=== PATIENT | female | born 1945 | race Caucasian/White ===

== ENCOUNTER 2025-02-05 11:18 | Emergency (ER) | payer OTHER, SELFPAY ==
[2025-02-05] VITALS (7 sets, daily range): BP systolic 126–148; BP diastolic 55–88; PULSE 65–88; RESP 16–20; TEMP 36.4–36.6; O2SAT 97–99
--- NOTE | ~2025-02-05 | XR_ITS ---
EXAMINATION: XR chest 2V 02/05/2025 13:30 INDICATION: Altered mental status with cough PROCEDURE: 2 view chest COMPARISON: No prior studies for comparison. FINDINGS: The lungs are clear. The cardiomediastinal silhouette is within normal limits. There are no pleural effusions. There is no pneumothorax suspected. IMPRESSION: 1: NO ACUTE CARDIOPULMONARY DISEASE. Reviewed, dictated and finalized at location A.
--- NOTE | ~2025-02-05 | CT_ITS ---
EXAMINATION: CT brain wo con DATE: 02/05/2025 16:14 INDICATION: Altered mental status TECHNIQUE: Computed tomography (CT) of the head was performed without intravenous contrast. Sagittal and coronal reconstructions were performed. The mA was adjusted according to patient size. Iterative reconstruction technique was employed. The dose-length product was 605.33 mGy-cm. COMPARISON: None FINDINGS: Small regions of encephalomalacia in the right occipital lobe consistent with old infarct. Additional small old infarcts in the right corpus callosum and in the at the bilateral basal ganglia near the g enus of the bilateral internal capsules. No acute intracranial hemorrhage, acute infarction or abnorm al extra axial fluid collection. There is mild to moderate scattered white matter hypoattenuation con sistent with chronic small vessel ischemic disease. Symmetric prominence of the sulci consistent with moderate age-appropriate diffuse cerebral volume loss. Ventricles are normal and symmetric. No mass/ mass effect. Changes of left intraocular lens replacement. The orbits, paranasal sinuses and right ma stoid air cells are normal. Small left mastoid effusion. IMPRESSION: 1. 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 No acute intracranial process. 2. Age-related changes including moderate diffuse volume loss and mild to moderate scattered white ma tter hypoattenuation consistent with chronic small vessel ischemic disease. Reviewed, dictated and finalized at location A. IMPRESSION: 1. 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 No acute intracranial process. 2. Age-related changes including moderate diffuse volume loss and mild to moder ate scattered white matter hypoattenuation consistent with chronic small vessel ischemic disease.
--- OUTSIDE RECORDS SUMMARY | 2025-02-05 11:21 | XMS_ITS | Clinical Summary ---
Author Organization [facility] Address [address] [place] [address] Care Team Providers Care Team Manager Name Role Phone Unavailable Primary Care Provider Unavailabl e Source Comments [facility],non-owned Affiliates and Associated Physician Practices is amultiple site organization consisting of ambulatory clinics and hospital sitesin [place], [place], [place] and [place]. This disclosure is being madepursuant to the Care Everywhere program and may not contain all information available regarding this patient. Last updated 18.[facility] [employer] Allergies No known active allergies Social History Tobacco Use Types Packs/Day Years Used Date Smoking Tobacco: Never Assessed Comments Unknown Sex and Gender Information Value Date Recorded Sex Assigned at Not on file Legal Sex Female 9:18 PM CDT Gender Identity Not on file Sexual Orientation Not on file Last Filed Vital Signs Vital Sign Reading Time Taken Comments Blood Pressure 165/97 03/20/2024 12:23 AM CDT Pulse 79 03/20/2024 12:23 AM CDT Temperature 36.6 C (97.9 F) 03/20/2024 12:23 AM CDT Respiratory Rate 16 03/20/2024 12:23 AM CDT Oxygen Saturation 94% 03/20/2024 12:23 AM CDT Inhaled Oxygen Concentration - - Weight 81.6 kg (180 lb) 03/25/2024 11:19 AM CDT Height 152.4 cm (5') 03/25/2024 11:19 AM CDT Body Mass Index 35.15 03/25/2024 11:19 AM CDT Plan of Treatment Health Maintenance Due Date Last Done Comments BONE DENSITY TESTING 1945 DTAP/TDAP/TD VACCINES (1 - Tdap) 01/31/1963 PNEUMOCOCCAL VACCINE 50+ (1 of 1 - PCV) 01/31/1994 ZOSTER VACCINE (1 of 2) 01/31/1994 Respiratory Syncytial Virus (RSV) Vaccine Pt: or over 60 yrs (1 - 1-dose 75+ series) 01/31/2019 COVID-19 VACCINE (3 - season) 2024 11/16/2020, 10/26/2020 DEPRESSION SCREENING 07/02/2024 INFLUENZA VACCINE (#1) 2025 , 04/29/2019, 03/29/2018, Additional history exists HEPATITIS B VACCINE Aged Out No longe r eligible based on patient's age to complete this topic HIB VACCINE Aged Out No longer eligi ble based on patient's age to complete this topic HPV VACCINE Aged Out No longer eligi ble based on patient's age to complete this topic MENINGOCOCCAL (Group B) VACCINE SHARED DECISION-MAKING Aged Out No longer eligible based on patient's age to complete this topic MENINGOCOCCAL GROUPS A/C/Y/W VACCINE Aged Out No longer eligible based on patient's age to complete this topic Insurance * Guarantor: Stroke, Lola Account Type Relation to Patient Date of Phone Billing Address Personal/Family Self 1945 [address] [place] [address] [facility] * Guarantor: Stroke, Lola Account Type Relation to Patient Date of Phone Billing Address Personal/Family Self 1945
--- OUTSIDE RECORDS SUMMARY | 2025-02-05 11:21 | XMS_ITS | Clinical Summary ---
Author Organization [facility] Facility Address [address] [place] [address] Care Team Providers Care Manager Internet Ret[employer] Sales Name Role Phone Kendra Krishnamurthy MD Primary Care Provider [phone] Encounters Date Type Department Care Team Description 01/29/2025 Documentation Only [facility], [address] [address] Provider, MD Noelle from Last 3 Months Family History Medical History Relation Comments Cancer Father Cancer Mother Cancer Sibling Relation Status Comments Father Mother Sibling Social History Tobacco Use Types Packs/Day Years Used Date Smoking Tobacco: Never Alcohol Use Standard Drinks/Week Comments No 0 (1 standard drink = 0.6 oz pur e alcohol) Comments Unknown Sex and Gender Information Value Date Recorded Sex Assigned at Not on file Legal Sex Female 2:49 PM EDT Gender Identity Not on file Sexual Orientation Not on file Plan of Treatment Health Maintenance Due Date Last Done Comments Pneumococcal Vaccine: 50+ Years (3 of 3 - PCV) 03/26/2018 03/26/2017, 11/03/2015 Influenza Vaccine (#1) 2025 , 04/21/2023, 04/07/2022, Additional history exists Hepatitis B Vaccine Aged Out No longe r eligible based on patient's age to complete this topic Insurance * Guarantor: StrokePaigene Account Type Relation to Patient Date of Phone Billing Address Personal/Family Self [address] [place] [id number] [address] [place] [employer] ([id number]) Care Teams Manager [employer] Sales Relationship Specialty Start Date End Date Kendra Krishnamurthy MD [address] [place] [address], [address] [place] [address] PCP - General Internal Medicine 10/24/24
--- NOTE | 2025-02-05 12:49 | ED.AMS ---
HPI - Altered Mental Status General Chief Complaint: Altered Mental Status Stated Complaint: altered mental status Time Seen by Provider: 02/05/25 12:44 History of Present Illness HPI narrative: Patient is an 80-year-old female who presents ER with altered mental status. Recently hospitalized in [place] for UTI. She was discharged home. Daughter found her sleeping well eating today and reports she has been falling asleep more often. Recently diagnosed with dementia and started on donepezil. Patient has no complaints at this time. Related Data Home Medications ?Medication ?Instructions ?Recorded ?Confirmed ?Last Taken ?Type acetaminophen PO PRN 01/29/24 01/29/24 Unknown History levothyroxine 25 mcg tablet 25 mcg PO DAILY 01/29/24 01/29/24 Unknown History Allergies Allergy/AdvReac Type Severity Reaction Status Date / Time No Known Allergies Allergy Unverified 01/29/24 13:05 Review of Systems Review of Systems: ROS unobtainable: Yes unobtainable due to mental status PMFSH Past Medical History Medical History (Updated 02/05/25 @ 17:08 by Gallo Greenberg MD) Urinary frequency Hypothyroid Confusion Thyroid disorder Arthritis Anxiety Seasonal allergies Surgical History Surgical History (Updated 01/29/24 @ 13:07 by Dinesh Sheppard CMA) Hx of fracture of leg Family History Family History Mother Thyroid disorder Sibling Thyroid disorder Social History Social History Smoking status: Never smoker Alcohol intake: never Substance use: never Exam Narrative: GENERAL: Well-appearing, well-nourished, and in no acute distress. HEAD: Normocephalic, atraumatic. EYES: PERRL and EOMI. ENT: Mucous membranes moist. CHEST: Clear to auscultation. No respiratory distress. HEART: Regular rate and rhythm. Normal peripheral pulses. ABDOMEN: Soft, nontender, nondistended. EXTREMITIES: Normal range of motion. No edema. SKIN: Warm, dry, no rash. NEURO: Awake alert and orient x2. Ambulates with a steady gait. No upper lower extremity drift. No facial asymmetry. Normal coordination. PSYCH: Normal mood and affect. Course Course Emergency Course: Patient resting comfortably. Eating drinking without issue. Discussed imaging and lab results with daughter. Patient has been sleeping more home since last admission. No falls. Suspect vascular dementia given imaging results. Vital Signs Vital signs: Vital Signs Temperature 97.6 F 02/05/25 11:19 Pulse Rate 65 02/05/25 11:19 Respiratory Rate 18 02/05/25 11:19 Blood Pressure 129/55 L 02/05/25 11:19 Pulse Oximetry 99 02/05/25 11:19 Oxygen Delivery Room Air 02/05/25 11:19 Temperature 97.8 F 02/05/25 16:59 Pulse Rate 86 02/05/25 16:59 Respiratory Rate 16 02/05/25 16:59 Blood Pressure 148/82 H 02/05/25 16:59 Pulse Oximetry 97 02/05/25 16:59 Oxygen Delivery Room Air 02/05/25 11:19 MDM - Altered Mental Status Lab Data 02/05/25 13:20 02/05/25 13:20 Labs: Lab Results 02/05/25 02/05/25 Range/Units 13:12 13:20 WBC 7.7 (4.5-10.0) K/mm3 RBC 3.50 L (4.2-5.4) M/mm3 Hgb 10.5 L (12.0-15.0) g/dL Hct 32.4 L (37.0-47.0) % MCV 92.6 (80-100) fl MCH 30.0 (26-34) pg MCHC 32.4 (32-36) g/dl RDW 13.2 (11.5-14.5) % Plt Count 232 (150-375) k/mm3 MPV 9.6 (7.4-10.4) fl Immature Gran % (Auto) 1.0 H (0-0.5) % Neut % (Auto) 77.4 H (45.5-73.1) % Lymph % (Auto) 8.5 L (18.3-44.2) % [place] % (Auto) 10.5 H (2.6-8.5) % Eos % (Auto) 2.1 (0-4.4) % Baso % (Auto) 0.5 (0.2-1.2) % Lymph # (Auto) 0.65 L (0.9-3.2) K/mm3 [place] # (Auto) 0.8 H (0.1-0.6) K/mm3 Eos # (Auto) 0.2 (0-0.3) K/mm3 Baso # (Auto) 0.0 (0.0-0.1) K/mm3 Abs Immat Gran (auto) 0.08 H (0.00-0.031) K/mm3 Absolute Neuts (auto) 6.0 (1.3-6.7) K/mm3 Absolute Nucleated RBC 0.000 (0.0-0.012) K/mm3 Nucleated RBC % 0.0 (0.0-0.2) % Sodium 130 L (137-145) mmol/L Potassium 4.8 (3.4-5.0) mmol/L Chloride 95 L (98-107) mmol/L Carbon Dioxide 29 (22-30) mmol/L Anion Gap 6 (4-12) mmol/L BUN 10 (7-17) mg/dL Creatinine 0.91 (0.7-1.0) mg/dL Estim Creat Clear Calc 37 ml/min Estimated GFR 59 (59 - ) Glucose 112 H (65-110) mg/dL Calcium 9.9 (8.4-10.2) mg/dL Total Bilirubin 0.3 (0.2-1.3) mg/dL AST 41 H (14-36) U/L ALT 23 (6-35) U/L Alkaline Phosphatase 114 (38-126) U/L Total Protein 6.4 (6.3-8.2) g/dL Albumin 3.5 (3.5-5.1) g/dL Urine Color Yellow (Yellow) Urine Appearance Cloudy H (Clear) Urine pH 6.0 (5.0-9.0) Ur Specific [place] 1.009 (1.001-1.035) Urine Protein Negative (Negative) mg/dL Urine Glucose (UA) Negative (Negative) mg/dL Urine Ketones Negative (Negative) mg/dL Ur Blood (Man) Negative (Negative) Urine Nitrate Negative (Negative) Urine Bilirubin Negative (Negative) Urine Urobilinogen 0.2 (<2.0) mg/dL Leukocyte Esterase Rfl Negative (Negative) ISRAEL/UL Urine RBC 0-2 (0-2) /hpf Urine WBC 0-5 (0-3) /hpf Ur Squamous Epith Cells None seen (Few) /hpf Urine Bacteria None seen /hpf Urine Casts 0-2 Imaging Data Radiologist's impression: ITS Impressions Chest X-Ray 02/05/25 13:35 IMPRESSION: 1: NO ACUTE CARDIOPULMONARY DISEASE. Head CT 02/05/25 16:28 IMPRESSION: 1. 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 No acute intracranial process. 2. Age-related changes including moderate diffuse volume loss and mild to moderate scattered white matter hypoattenuation consistent with chronic small vessel ischemic disease. ECG Data EKG #1: ECG completion date: 02/05/25 ECG completion time: 12:54 EKG Interpretation: normal rate (72), sinus rhythm, no ST changes, normal QRS and normal QT Discharge Plan Discharge Clinical Impression: General weakness Patient Disposition: Home Condition: Stable Instructions: General Patient Instructions Additional Instructions: Please return to the emergency department if you develop severe and persistent chest pain, difficulty breathing, dizziness, leg swelling or if you are coughing up blood as these can be signs of a medical emergency. Please call your doctor for a follow up appointment to determine the need for further testing. Patient Language: Armenian Prescriptions: No Action levothyroxine 25 mcg tablet 25 mcg PO DAILY meloxicam 15 mg tablet 15 mg PO DAILY Qty: 90 3RF acetaminophen PO PRN donepezil [Aricept] 5 mg tablet 5 mg PO QHS Qty: 30 5RF Follow-up/Referrals: PHYSICIAN NOT ON STAFF,NONSTAFF [Primary Care Provider] - 1 Week
--- NOTE | 2025-02-05 12:55 | ECG_ITS ---
Test Date: 2025-02-05 12:54:34 Measurements Intervals [place] Rate: 72 P: 75 MS: 141 QRS: -25 QRSD: 79 T: 16 QT: 376 QTc: 414 Interpretive Statements SINUS RHYTHM BORDERLINE R WAVE PROGRESSION, ANTERIOR LEADS LEFT VENTRICULAR HYPERTROPHY AND ST-T CHANGE MINIMAL Q WAVES- HIGH LATERAL LEADS BASELINE ARTIFACT- I, II, AVR, AVL, V3 BORDERLINE ECG No previous ECG available for comparison Electronically Signed On 02-05-2025 13:47:00 CDT by Milton Jara D.O.
--- OUTSIDE RECORDS SUMMARY | 2025-02-05 13:21 | XMS_ITS | Clinical Summary ---
Author Organization [facility] Facility Address [address] [place] [address] Care Team Providers Care Outdoor Adventure Guides Name Role Phone Kendra Krishnamurthy MD Primary Care Provider [phone] Encounters Date Type Department Care Team Description 01/29/2025 Documentation Only [facility], [address] [address] Provider, MD Noelle from Last [...] of Phone Billing Address Personal/Family Self [address] [place] [id number] [place] [employer] ([id number]) Care Teams Outdoor Adventure Guides Relationship Specialty Start Date End Date Kendra Krishnamurthy MD [address] [place] [address], [address] [place] [address] PCP - General Internal Medicine 10/24/24
--- OUTSIDE RECORDS SUMMARY | 2025-02-05 13:21 | XMS_ITS | Clinical Summary ---
Author Organization [facility] Address [address] [place] [address] Care Team Providers Care Miscellaneous Machine Operator Name Role Phone Unavailable Primary Care Provider Unavailabl e Source Comments [facility],non-owned Affiliates and Associated Physician Practices is amultiple site organization consisting of ambulatory clinics and hospital sitesin [place], [place], [place] and [place]. This disclosure is being madepursuant to the Care Everywhere program and may not contain all information available regarding this patient. Last updated 18.[facility] Medical Allergies No known active allergies Social History [...] of Phone Billing Address Personal/Family Self 1945 [address] [place] [address] [facility] * Guarantor: Stroke, Lola Account Type Relation to Patient Date of Phone Billing Address Personal/Family Self 1945
[2025-02-05 13:22] LABS: Add Urine Microscopic? YES; Appearance Urine Cloudy (Clear); Glucose Urine UA Negative (Negative); Leukocyte Esterase Ur Negative LEU/UL (Negative); Nitrate Urine Negative (Negative); Non Pathogenic Casts 0-2; Specific Grav Ur 1.009 (1.001-1.035)
[2025-02-05 13:28] LABS: Hematocrit 32.4 % (37.0-47.0); Hemoglobin 10.5 g/dL (12.0-15.0); Immature Granulocyte Percent A 1.0 % (0-0.5); Lymphocytes Absolute Auto 0.65 K/mm3 (0.9-3.2); Mean Corpuscular HGB Conc 32.4 g/dl (32-36); Mean Corpuscular Hemoglobin 30.0 pg (26-34); Mean Corpuscular Volume 92.6 fl (80-100); Nucleated Red Blood Cells Absolute Auto 0.000 K/mm3 (0.0-0.012); Nucleated Red Blood Cells Perc 0.0 % (0.0-0.2); Platelet Count Result 232 k/mm3 (150-375); Red Blood Count 3.50 M/mm3 (4.2-5.4); White Blood Count 7.7 K/mm3 (4.5-10.0)
[2025-02-05 13:53] LABS: Alanine Aminotransferase 23 U/L (6-35); Albumin Level 3.5 g/dL (3.5-5.1); Alkaline Phosphatase 114 U/L (38-126); Anion Gap 6 mmol/L (4-12); Aspartate Amino Transferase 41 U/L (14-36); Bilirubin,Total 0.3 mg/dL (0.2-1.3); Blood Urea Nitrogen 10 mg/dL (7-17); Calcium 9.9 mg/dL (8.4-10.2); Carbon Dioxide 29 mmol/L (22-30); Chloride 95 mmol/L (98-107); Estimated CRCL calculation 37 ml/min; Estimated Glomerular Filt Rate 59; Glucose 112 mg/dL (65-110); Potassium 4.8 mmol/L (3.4-5.0); Sodium 130 mmol/L (137-145); Total Protein 6.4 g/dL (6.3-8.2)
== END 2025-02-05 18:12 | disposition home or self-care (01) ==
PROVIDERS: Emergency Provider Emergency Medicine
DX: R53.1 Weakness (principal); F03.90 Unspecified dementia, unspecified severity, without behavioral disturbance, psychotic disturbance, mood disturbance, and anxiety; E03.9 Hypothyroidism, unspecified; M19.90 Unspecified osteoarthritis, unspecified site; F41.9 Anxiety disorder, unspecified; Z87.440 Personal history of urinary (tract) infections; Z79.899 Other long term (current) drug therapy; I51.7 Cardiomegaly; R94.31 Abnormal electrocardiogram [ECG] [EKG]
CPT/HCPCS: 36415; 70450; 71046; 80053; 81001; 85025; 93005; 99284